=== PATIENT | female | born 1945 | race Asian ===

== ENCOUNTER 2018-09-09 17:36 | Emergency (ER) | payer MEDICARE, BC ==
[~2018-09-09] VITALS: Ht 157.5 cm; Wt 77.1 kg
[~2018-09-09 17:36] MED LIST: AMOCLA875 PO; AZIT500 PO; CEPH500 PO; CITA20 PO; FOLI1 PO; FURO20 PO; GABA300 PO; HYDR1TAB94 PO; HYDSUL200 PO; LORA.5 PO; MELO7.5 PO; MULVITMIND PO; Methotrexa25 MG/1 ML SC; Mobic15 MG PO; Mobic7.5 MG PO; NIFE60ER PO; NORT25 PO; Nifedical Xl30 MG PO; Nortriptyline H25 MG PO; OMEP40CA12 PO; OMEPRAZOLE MAGN20 MG PO; ONDA4ODT MM; POTA10T PO; PRAM.5 PO; PRED10 PO; Triamcinolone A15 G2 TOP
[2018-09-09 18:52] LABS: BASOPHILS ABSOLUTE AUTO 0.07 K/mm3 (0.00-0.23); BASOPHILS PERCENT AUTO 1 % (0-2); EOSINOPHILS ABSOLUTE AUTO 0.29 K/mm3 (0.00-0.68); EOSINOPHILS PERCENT AUTO 3 % (0-6); Hematocrit 44.9 % (33.0-51.0); Hemoglobin 14.4 g/dL (11.5-16.0); IMMATURE GRAN ABSOLUTE AUTO 0.05 K/mm3 (0.00-0.10); IMMATURE GRAN PERCENT AUTO 1 % (0-1); LYMPHOCYTES ABSOLUTE AUTO 1.36 K/mm3 (0.84-5.20); LYMPHOCYTES PERCENT AUTO 13 % (21-46); MONOCYTES ABSOLUTE AUTO 0.69 K/mm3 (0.16-1.47); MONOCYTES PERCENT AUTO 7 % (4-13); Mean Corpuscular HGB 30.7 pg (26.0-34.0); Mean Corpuscular HGB Conc 32.1 g/dL (31.5-36.5); Mean Corpuscular Volume 96 fL (80-100); Mean Platelet Volume 10.8 fL (9.1-12.4); NEUTROPHILS ABSOLUTE AUTO 7.66 K/mm3 (1.96-9.15); NEUTROPHILS PERCENT AUTO 76 % (41-73); Platelet Count 310 K/mm3 (150-400); RDW Coefficient Variation 14.6 % (11.7-14.2); RDW Standard Deviation 50.8 fL (35.1-46.3); Red Blood Cell Count 4.69 M/mm3 (3.80-5.20); White Blood Cell Count 10.12 K/mm3 (4.00-11.30)
[2018-09-09 19:13] LABS: Alanine Aminotransfer (ALT/SGP 24 U/L (12-78); Albumin, Blood 4.1 g/dL (3.4-5.0); Albumin/Globulin Ratio 1.1 (0.8-1.8); Alk Phos 98 U/L (50-136); Anion Gap 7 mmol/L (6-16); Aspartate Aminotrans (AST/SGOT 22 U/L (12-37); Bilirubin, Total 0.5 mg/dL (0.1-1.0); Blood Urea Nitrogen 16 mg/dL (8-24); Bun/Creatinine Ratio 27.9 (12.0-20.0); CO2, Blood 24 mmol/L (21-32); Calcium, Blood 8.6 mg/dL (8.5-10.1); Chloride, Blood 106 mmol/L (98-108); Creatinine, Blood 0.57 mg/dL (0.40-1.00); Globulin, Blood 3.6 g/dL (2.2-4.0); Glomerular Filtration Rate >60 (60-); Glucose, Blood 118 mg/dL (70-99); Sodium, Blood 137 mmol/L (136-145); Total Protein, Blood 7.7 g/dL (6.4-8.2); Troponin I <0.015 ng/mL (0.000-0.040)
== END 2018-09-09 21:20 | disposition home or self-care (01) ==
LOC: ER 17:36
PROVIDERS: Emergency Medicine
DX: R06.00 Dyspnea, unspecified (principal); Z79.899 Other long term (current) drug therapy
CPT/HCPCS: 36415; 71046; 80053; 84484; 85025; 93005; 93010; 94640; 96374; 99285-25; J1940

== ENCOUNTER 2020-12-09 00:20 | Emergency (ER) | payer MEDICARE, BC ==
[~2020-12-09] VITALS: Ht 157.5 cm; Wt 61.2 kg
[~2020-12-09 00:20] MED LIST changes: -CITA20 PO; -OMEPRAZOLE MAGN20 MG PO
[2020-12-09 00:34] LABS: BASOPHILS ABSOLUTE AUTO 0.04 K/mm3 (0.00-0.23); BASOPHILS PERCENT AUTO 1 % (0-2); EOSINOPHILS ABSOLUTE AUTO 0.52 K/mm3 (0.00-0.68); EOSINOPHILS PERCENT AUTO 7 % (0-6); Hemoglobin 11.4 g/dL (11.5-16.0); IMMATURE GRAN ABSOLUTE AUTO 0.02 K/mm3 (0.00-0.10); IMMATURE GRAN PERCENT AUTO 0 % (0-1); LYMPHOCYTES ABSOLUTE AUTO 1.35 K/mm3 (0.84-5.20); LYMPHOCYTES PERCENT AUTO 18 % (21-46); MONOCYTES ABSOLUTE AUTO 0.72 K/mm3 (0.16-1.47); MONOCYTES PERCENT AUTO 9 % (4-13); Mean Corpuscular HGB 29.8 pg (26.0-34.0); Mean Corpuscular HGB Conc 32.6 g/dL (31.5-36.5); Mean Corpuscular Volume 91 fL (80-100); Mean Platelet Volume 10.3 fL (9.1-12.4); NEUTROPHILS PERCENT AUTO 65 % (41-73); Platelet Count 259 K/mm3 (150-400); RDW Coefficient Variation 13.7 % (11.7-14.2); RDW Standard Deviation 46.1 fL (35.1-46.3); Red Blood Cell Count 3.83 M/mm3 (3.80-5.20); White Blood Cell Count 7.65 K/mm3 (4.00-11.30)
[2020-12-09 00:58] LABS: Alanine Aminotransfer (ALT/SGP 19 U/L (12-78); Albumin, Blood 3.2 g/dL (3.4-5.0); Alk Phos 77 U/L (50-136); Anion Gap 9 mmol/L (6-16); Aspartate Aminotrans (AST/SGOT 16 U/L (12-37); Bilirubin, Total 0.4 mg/dL (0.1-1.0); Blood Urea Nitrogen 17 mg/dL (8-24); CO2, Blood 22 mmol/L (21-32); Calcium, Blood 8.2 mg/dL (8.5-10.1); Chloride, Blood 104 mmol/L (98-108); Creatinine, Blood 0.57 mg/dL (0.40-1.00); Ethanol (Alcohol), Blood, Med 80 mg/dL; Globulin, Blood 3.2 g/dL (2.2-4.0); Glomerular Filtration Rate >60 (60-); Glucose, Blood 96 mg/dL (70-99); Potassium, Blood 3.3 mmol/L (3.5-5.5); Sodium, Blood 135 mmol/L (136-145); Total Protein, Blood 6.4 g/dL (6.4-8.2); Troponin I <0.015 ng/mL (0.000-0.040)
[2020-12-09 01:11] LABS: PCO2 Arterial 38.9 mmHg (35-45); PO2 Arterial 55.9 mmHg (80-100); pH Blood Arterial 7.38 (7.35-7.45)
[2020-12-09] MEDS ORDERED: FURO20 PO (02:22)
[2020-12-09 02:57] LABS: Influenza A, PCR NEGATIVE (NEGATIVE); Influenza B, PCR NEGATIVE (NEGATIVE); Resp Syncytial Virus, PCR NEGATIVE (NEGATIVE); SARS-Cov-2 (COVID-19) PCR, MMC NEGATIVE (NEGATIVE)
== END 2020-12-09 03:11 | disposition short-term general hospital (02) ==
LOC: ER 00:20
PROVIDERS: Emergency Medicine
DX: I50.9 Heart failure, unspecified (principal); Z20.822 Contact with and (suspected) exposure to COVID-19; Z88.2 Allergy status to sulfonamides; Z88.8 Allergy status to other drugs, medicaments and biological substances; Z88.5 Allergy status to narcotic agent; Z86.79 Personal history of other diseases of the circulatory system; Z79.899 Other long term (current) drug therapy; M79.605 Pain in left leg
CPT/HCPCS: 0241U; 36600; 71045; 80053; 82803; 83605; 83880; 84484; 85025; 93005; 93010; 93971; 96374; 96375; 99285-25; G0480; J1940; J3010

== ENCOUNTER 2020-12-23 19:29 | Emergency (ER) | payer MEDICARE, BC ==
[~2020-12-23] VITALS: Ht 157.5 cm; Wt 61.2 kg
[2020-12-23] MEDS ORDERED: CITA20 PO (21:05)
[2020-12-23] MEDS ORDERED: OMEPRAZOLE MAGN20 MG PO (21:05)
[2020-12-23] MEDS ORDERED: POTA10T PO (21:05)
[2020-12-23] MEDS ORDERED: TORSE20 PO (21:06)
[2020-12-23] MEDS ORDERED: PRAM.5 PO (21:07)
[2020-12-23] MEDS ORDERED: OPSUMIT10 MG PO (21:07)
[2020-12-23] MEDS ORDERED: REVATIO20 MG PO (21:08)
[2020-12-23] MEDS ORDERED: LORA.5 PO (21:08)
[2020-12-23] MEDS ORDERED: FAMO20 PO (21:09)
[2020-12-23] MEDS ORDERED: VITAMIN D325 MC3 PO (21:10)
[2020-12-23] MEDS ORDERED: LORA10ER PO (21:10)
[2020-12-23] MEDS ORDERED: Remodulin1 MG/1 ML (21:11)
[2020-12-23] MEDS ORDERED: BANOPHEN25 MG PO (21:11)
[2020-12-23 21:20] LABS: BASOPHILS ABSOLUTE AUTO 0.03 K/mm3 (0.00-0.23); BASOPHILS PERCENT AUTO 0 % (0-2); EOSINOPHILS ABSOLUTE AUTO 0.14 K/mm3 (0.00-0.68); EOSINOPHILS PERCENT AUTO 2 % (0-6); Hematocrit 36.7 % (33.0-51.0); Hemoglobin 12.1 g/dL (11.5-16.0); IMMATURE GRAN ABSOLUTE AUTO 0.05 K/mm3 (0.00-0.10); IMMATURE GRAN PERCENT AUTO 1 % (0-1); LYMPHOCYTES ABSOLUTE AUTO 1.01 K/mm3 (0.84-5.20); LYMPHOCYTES PERCENT AUTO 11 % (21-46); MONOCYTES ABSOLUTE AUTO 0.54 K/mm3 (0.16-1.47); MONOCYTES PERCENT AUTO 6 % (4-13); Mean Corpuscular HGB 30.2 pg (26.0-34.0); Mean Corpuscular Volume 92 fL (80-100); Mean Platelet Volume 10.2 fL (9.1-12.4); NEUTROPHILS PERCENT AUTO 80 % (41-73); Platelet Count 275 K/mm3 (150-400); RDW Coefficient Variation 14.2 % (11.7-14.2); RDW Standard Deviation 48.2 fL (35.1-46.3); Red Blood Cell Count 4.01 M/mm3 (3.80-5.20); White Blood Cell Count 8.87 K/mm3 (4.00-11.30)
[2020-12-23] MEDS ORDERED: TORS10 PO (21:25)
[2020-12-23 21:32] LABS: Anion Gap 8 mmol/L (6-16); Blood Urea Nitrogen 21 mg/dL (8-24); Bun/Creatinine Ratio 29.8 (12.0-20.0); CO2, Blood 22 mmol/L (21-32); Calcium, Blood 8.4 mg/dL (8.5-10.1); Chloride, Blood 107 mmol/L (98-108); Creatinine, Blood 0.71 mg/dL (0.40-1.00); Glomerular Filtration Rate >60 (60-); Glucose, Blood 111 mg/dL (70-99); Potassium, Blood 3.6 mmol/L (3.5-5.5); Sodium, Blood 137 mmol/L (136-145)
[2020-12-23 21:34] LABS: International Normalized Ratio 1.02; Prothrombin Time Results 10.9 Sec (9.7-11.5)
== END 2020-12-24 03:08 | disposition short-term general hospital (02) ==
LOC: ER 19:29
PROVIDERS: Emergency Medicine
DX: S72.041A Displaced fracture of base of neck of right femur, initial encounter for closed fracture (principal); K21.9 Gastro-esophageal reflux disease without esophagitis; Z88.2 Allergy status to sulfonamides; Z88.8 Allergy status to other drugs, medicaments and biological substances; Z88.5 Allergy status to narcotic agent; Z79.899 Other long term (current) drug therapy; Z87.891 Personal history of nicotine dependence; W18.30XA Fall on same level, unspecified, initial encounter
CPT/HCPCS: 51702; 71045; 73502; 80048; 85025; 85610; 85730; 86850; 86900; 86901; 93005; 93010; 96374-59; 96375-59; 96376; 96376-59; 99285-25; J1170; J2405

== ENCOUNTER 2021-08-10 03:33 | Inpatient (IN) | payer MEDICARE, BC ==
[~2021-08-10] VITALS: Ht 157.5 cm; Wt 64.5 kg
[~2021-08-10 03:33] MED LIST changes: +BANOPHEN25 MG PO; +CITA20 PO; +FAMO20 PO; +LORA10ER PO; +OMEPRAZOLE MAGN20 MG PO; +OPSUMIT10 MG PO; +REVATIO20 MG PO; +Remodulin1 MG/1 ML; +TORS10 PO; +TORSE20 PO; +VITAMIN D325 MC3 PO
[2021-08-10 03:55] LABS: BASOPHILS ABSOLUTE AUTO 0.05 K/mm3 (0.00-0.23); BASOPHILS PERCENT AUTO 1 % (0-2); EOSINOPHILS ABSOLUTE AUTO 0.36 K/mm3 (0.00-0.68); EOSINOPHILS PERCENT AUTO 3 % (0-6); Hematocrit 32.3 % (33.0-51.0); Hemoglobin 9.5 g/dL (11.5-16.0); IMMATURE GRAN ABSOLUTE AUTO 0.04 K/mm3 (0.00-0.10); IMMATURE GRAN PERCENT AUTO 0 % (0-1); LYMPHOCYTES ABSOLUTE AUTO 1.42 K/mm3 (0.84-5.20); LYMPHOCYTES PERCENT AUTO 14 % (21-46); MONOCYTES ABSOLUTE AUTO 0.67 K/mm3 (0.16-1.47); MONOCYTES PERCENT AUTO 6 % (4-13); Mean Corpuscular HGB 23.2 pg (26.0-34.0); Mean Corpuscular HGB Conc 29.4 g/dL (31.5-36.5); Mean Corpuscular Volume 79 fL (80-100); Mean Platelet Volume 9.6 fL (9.1-12.4); NEUTROPHILS ABSOLUTE AUTO 7.96 K/mm3 (1.96-9.15); NEUTROPHILS PERCENT AUTO 76 % (41-73); Platelet Count 319 K/mm3 (150-400); RDW Coefficient Variation 16.8 % (11.7-14.2); RDW Standard Deviation 48.2 fL (35.1-46.3)
[2021-08-10] MEDS ORDERED: OPSUMIT10 MG (03:57)
[2021-08-10] MEDS ORDERED: Norco 5-325 Ta1 EACH (03:58)
[2021-08-10 04:18] LABS: Anion Gap 8 mmol/L (6-16); Blood Urea Nitrogen 26 mg/dL (8-24); CO2, Blood 24 mmol/L (21-32); Calcium, Blood 8.7 mg/dL (8.5-10.1); Chloride, Blood 108 mmol/L (98-108); Creatinine, Blood 0.74 mg/dL (0.40-1.00); Glomerular Filtration Rate >60 (60-); Glucose, Blood 123 mg/dL (70-99); Potassium, Blood 3.2 mmol/L (3.5-5.5); Sodium, Blood 140 mmol/L (136-145); Troponin I <0.015 ng/mL (0.000-0.040)
[2021-08-10 04:25] LABS: PCO2 Arterial 36.8 mmHg (35-45); PO2 Arterial 53.9 mmHg (80-100); pH Blood Arterial 7.46 (7.35-7.45)
[2021-08-10] MEDS ORDERED: ORENITRAM ER0.125 MG PO (06:06)
[2021-08-10 06:20] LABS: Percent Saturation 3.2 % (15.0-50.0)
[2021-08-10 08:32] LABS: Influenza A, PCR NEGATIVE (NEGATIVE); Influenza B, PCR NEGATIVE (NEGATIVE); Resp Syncytial Virus, PCR NEGATIVE (NEGATIVE); SARS-Cov-2 (COVID-19) PCR, MMC NEGATIVE (NEGATIVE)
--- NOTE | 2021-08-10 19:25 | NUR ---
ASSUMED CARE OF PATIENT AT 1900. A/OX4 WITH PERIODS OF SLIGHT CONFUSION. MAINTAINS 90-95% ON 10L NC (BASELINE IS 6L), DESATS WITH ACTIVITY INTO LOW 80'S. CLEAR UPPER, DIM AT BASES. NSR ON MONITOR 90'S. AGUAYO DRAINING TO GRAVITY YELLOW URINE. WILL UPDATE WITH ANY CHANGES THAT OCCUR THIS SHIFT.
[2021-08-11 04:10] LABS: Anion Gap 10 mmol/L (6-16); Blood Urea Nitrogen 18 mg/dL (8-24); Bun/Creatinine Ratio 31.9 (12.0-20.0); CO2, Blood 24 mmol/L (21-32); Calcium, Blood 8.8 mg/dL (8.5-10.1); Chloride, Blood 109 mmol/L (98-108); Creatinine, Blood 0.57 mg/dL (0.40-1.00); Glomerular Filtration Rate >60 (60-); Glucose, Blood 146 mg/dL (70-99); Potassium, Blood 3.5 mmol/L (3.5-5.5); Sodium, Blood 143 mmol/L (136-145)
--- NOTE | 2021-08-11 18:07 | NUR ---
SHIFT SUMMARY ASSUMED CARE OF PATIENT AT APPROX 0700. PT A&Ox3; FORGETFUL. CALM AND COOPERTIVE WITH CARE. PT UP IN CHAIR FOR MEALS, OTHERWISE RESTING IN BED DURING SHIFT. PT DENIES PAIN, CHEST PAIN, NAUSEA AND DIZZINESS. PT REPORTS SOB WITH EXERTION, SPO2 >90% WHILE AT REST, PT STARTED ON 10L O2 VIA NC, TITRATED TO 6L O2 VIA NC WHICH IS HOME DOSE. PT RECEIVING IV LASIX AND STEROIDS. OTHER VSS. NO OTHER ACUTE CHANGES NOTED. WILL CONTINUE TO MONITOR UNTIL REPORT GIVEN TO ONCOMING RN.
--- NOTE | 2021-08-11 20:30 | NUR ---
ASSUMED CARE OF PATIENT AT 1900. A/OX4, REPORTS HEADACHE OF 5/10. MAINTAINING BETWEEN 90-95% ON 6L NC (HER HOME BASELINE), HOWEVER SHE DESATS WITH ACTIVITY INTO 70'S-80'S WITH A LONG RECOVERY. LS CLEAR T/O. SINUS ON MONITOR IN 80'S. NO CP/PRESSURE. HYPERACTIVE BOWEL TONES WITH ACCOMPANIED DIARRHEA, PATIENT REPORTS THIS HAS BEEN A CHRONIC PROBLEM. AGUAYO DRAINING TO GRAVITY YELLOW/CLEAR URINE. BP CONTINUES TO BE SOFT WITH SBP IN 90-100'S AND MAP AROUND 65. WILL UPDATE IF ANY CHANGES OCCUR.
[2021-08-12 06:36] LABS: Albumin, Blood 2.9 g/dL (3.4-5.0); Anion Gap 9 mmol/L (6-16); Blood Urea Nitrogen 25 mg/dL (8-24); Bun/Creatinine Ratio 39.1 (12.0-20.0); CO2, Blood 25 mmol/L (21-32); Calcium, Blood 8.7 mg/dL (8.5-10.1); Chloride, Blood 108 mmol/L (98-108); Creatinine, Blood 0.64 mg/dL (0.40-1.00); Glomerular Filtration Rate >60 (60-); Glucose, Blood 83 mg/dL (70-99); Magnesium, Blood 2.3 mg/dL (1.6-2.4); Phosphorus, Blood 4.1 mg/dL (2.5-4.9); Potassium, Blood 3.8 mmol/L (3.5-5.5); Sodium, Blood 142 mmol/L (136-145)
[2021-08-12] MEDS ORDERED: Acerola C500 MG PO (11:40)
[2021-08-12] MEDS ORDERED: PRED20 PO (11:40)
[2021-08-12] MEDS ORDERED: FERSU300 PO (11:41)
--- NOTE | 2021-08-12 14:00 | NUR ---
DISCHARGE SUMMARY PT A&O; CALM AND COOPERATIVE WITH CARE. PT UP IN CHAIR FOR MAJORITY OF SHIFT. PT DENIES PAIN, CHEST PAIN, SOB, NAUSEA AND DIZZINESS. SPO2 >90% ON 6L O2 VIA NC, DENIES SOB WITH MOVEMENT. BLADDER TRAINING COMPLETED, PT VOID AFTER AGUAYO REMOVAL. VSS. NO OTHER ACUTE CHANGES NOTED. PT EDUCATED ON DISCHARGE INSTRUCTIONS, FOLLOW UP APPOINTMENT, MEDICATED AND FLUID RESTRICTIONS. PRESCRIPTIONS TO [facility] PER PT REQUEST. PT LEFT ROOM VIA WHEELCHAIR AT APPROX 1352.
== END 2021-08-12 13:52 | disposition home or self-care (01) | DRG 189 ==
LOC: ER 03:33 → ERHOLD 05:32 → PCU 05:32
PROVIDERS: Internal Medicine; Student in an Organized Health Care Education/Training Program; ADMIT Internal Medicine
DX: J96.21 Acute and chronic respiratory failure with hypoxia (principal); I27.0 Primary pulmonary hypertension; Z20.822 Contact with and (suspected) exposure to COVID-19; R19.00 Intra-abdominal and pelvic swelling, mass and lump, unspecified site; E87.6 Hypokalemia; D64.9 Anemia, unspecified; Z66 Do not resuscitate; M34.1 CR(E)ST syndrome; K21.9 Gastro-esophageal reflux disease without esophagitis; Z88.2 Allergy status to sulfonamides; Z23 Encounter for immunization; Z88.5 Allergy status to narcotic agent; Z88.8 Allergy status to other drugs, medicaments and biological substances; Z79.899 Other long term (current) drug therapy; Z90.710 Acquired absence of both cervix and uterus; Z98.890 Other specified postprocedural states; Z87.891 Personal history of nicotine dependence
CPT/HCPCS: 0241U; 36415; 36600; 51702; 71045; 71046; 74018; 80048; 80069; 82607; 82728; 82746; 82803; 83540; 83550; 83605; 83735; 83880; 84145; 84484; 85025; 90686; 93005; 93010; 94760; 96374; 96375; 99285-25; A9270; G0008; J1650; J1940; J2916; J2930; J7030; J7512

== ENCOUNTER 2022-06-08 21:36 | Inpatient (IN) | payer MEDICARE, BC ==
[~2022-06-08] VITALS: Ht 160 cm; Wt 58.3 kg
[~2022-06-08 21:36] MED LIST changes: +AZIT250 PO; +Acerola C500 MG PO; +Amoxicillin500 MG PO; +FERSU300 PO; +GUAI600T33 PO; +IPRATROPIUM BRO30 ML; +LOPE2C PO; +MULVITA PO; +Norco 5-325 Ta1 EACH; +OPSUMIT10 MG; +ORENITRAM ER0.125 MG PO; +PRED20 PO; +Pataday2.5 ML; +SPIR25 PO
[2022-06-09] MEDS ORDERED: BENADRYL25 MG PO (01:35)
[2022-06-09] MEDS ORDERED: REMODULIN (01:37)
--- NOTE | 2022-06-09 02:35 | NUR ---
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 PT WAS ADMITTED IN MARCH OF THIS YEAR WITH SAME DX. SHE IS ALERT AND ORIENTED ON ARRIVAL, STANDS TO TRANSFER TO BED WITH STEADY GAIT AND DENIES DIZZINESS/VERTIGO WITH TRANSFER. SHE STATES THAT HER BLOOD PRESSURE NORMALLY RUNS LOW. SHE IS NOTED SPEAKING IN FULL SENTENCES WITHOUT VISIBLE INCREASED WORK OF BREATHING AT REST AND REPORTS THAT HER RESPIRATORY STATUS FEELS NEAR BASELINE AFTER REMODULIN INFUSION WAS STARTED IN ER. REMODULIN IS NOTED INFUSING AT 17 ML/HR TO LEFT AC IV WITH FILTER IN PLACE. LUNGS ARE CLEAR WITH DIM BASES BILAT AND SATS ARE MAINTAINING MID TO UPPER 90S WITH OXYGEN VIA NASAL CANNULA AT 4 L/MIN, PT'S HOME FLOW RATE IS 5 L/MIN. PLAN OF CARE FOR THIS SHIFT IS REVIEWED WITH PT REGARDING FREQUENCY OF VITAL SIGN MONITORING, FALL PRECAUTIONS, ROOM AND CALL SYSTEM ORIENTATION, REVIEWED PT INITIATED RAPID RESPONSE. PT VERBALIZED UNDERSTANDING.
--- NOTE | 2022-06-09 05:26 | NUR ---
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 PT PRESSURES TOLERATING MEDICATION WELL, FREQUENCY OF ASSESSMENTS HAVE BEEN DECREASED TO EVERY 30 MINUTES SECONDARY TO HOME MEDICATION. PT STATES THAT BREATHING FEELS NEAR BASELINE. TOLERATES UP TO BATHROOM AND BSC WITH STANDBY ASSIST FOR LINE MANAGEMENT, SATS MAINTAINING WITH OXYGEN VIA NASAL CANNULA AT 4 LITERS PER MINUTE, HOME FLOW RATE IS 5 L/MIN. PLAN FOR HOME IV ADMINISTRATION UNTIL HOME PUMP IS REPAIRED OR REPLACED. WILL CONT TO MONITOR.
--- NOTE | 2022-06-09 10:30 | NUR ---
Assumed care: I recieved report from Leanna BUSH. Patient is OOB resting in the recliner. She is alert and oriented. VSS. Patient denies needs at this time. Call light in reach, will continue to monitor.
--- NOTE | 2022-06-09 12:30 | NUR ---
Update: Patient is sitting up in the chair watching TV. VSS. Assessment unchanged. Patient denies other needs at this time. Call light in reach, will continue to monitor.
--- NOTE | 2022-06-09 16:30 | NUR ---
Update: Patient is still sitting up in the chair her gtt was changed out. She denies other needs at this time. Will continue to monitor.
--- NOTE | 2022-06-09 18:31 | NUR ---
Summary: Patient has been alert and oriented t/o the shift. She has been OOB to the recliner t/o the shift. HRR. SR in the 70s, blood pressure has been soft but with MAPs above 65. LS DIM T/O, pt has been on home dose of O2 at 4L via NC. BT+, she has had some diarrhea this shift. She has her Remodulin gtt infusing with supplies being delivered from [facility] pharmacy per the patients daughter tomorrow. She has been ambulating to the bathroom SBA. No other acute changes this shift. Will report to oncoming RN.
--- NOTE | 2022-06-10 04:59 | NUR ---
SHIFT SUMMARY PT REMAINS ALERT AND ORIENTED. VS STABLE. HR NSR. BP STABLE. REMODULIN GTT INFUSING PER ORDERS. PT HAS RESTED MOST OF SHIFT. NO ACUTE CHANGES. WILL CONTINUE TO MONITOR AND REPORT TO ONCOMING RN
--- NOTE | 2022-06-10 09:27 | NUR ---
Am note Pt alert, oriented X4; calm and cooperative with care. Pt sba in room, up in chair for majority of morning. Pt denies pain, chest pain/pressue, nausea, sob, dizziness and numb/tingling. Ls clear, dim in bases, spo2 >90% on 4l o2 via nc. Remodulin gtt per orders. Tele sinus 80's bp stable. Abd soft, nontender, normo active bt. Other vss. No other acute changes noted. Will continue to monitor until report given to oncoming rn. Per pt, new pump should be delivered today, pt watching cameras at house and will have daughter deliver it to the hospital.
--- NOTE | 2022-06-10 14:31 | NUR ---
Daughter at bedside with new pump and is preparing it for placement. Notified .
--- NOTE | 2022-06-10 15:41 | NUR ---
Discharge Summary Pt daughter to bedside this afternoon, filled and placed new pump device, stopped iv infusion. Pt requesting medicaitons this am for chronic diarrhea, notified , new orders entered. No other acute changes noted. Vss. No other acute changes noted. Daughter and patient educated of discharge instructions, follow up appointments and medications changes. No new medication. Pt left via wheel chair at 1517. Home medication returned to patient.
== END 2022-06-10 15:17 | disposition home or self-care (01) | DRG 315 ==
LOC: ER 21:36 → PCU 21:37
PROVIDERS: ADMIT Internal Medicine
DX: T82.514A Breakdown (mechanical) of infusion catheter, initial encounter (principal); J96.11 Chronic respiratory failure with hypoxia; M34.1 CR(E)ST syndrome; K21.9 Gastro-esophageal reflux disease without esophagitis; I27.20 Pulmonary hypertension, unspecified; Z88.8 Allergy status to other drugs, medicaments and biological substances; Z90.710 Acquired absence of both cervix and uterus; Z98.890 Other specified postprocedural states; Z96.659 Presence of unspecified artificial knee joint; Z79.899 Other long term (current) drug therapy
CPT/HCPCS: 36415; 93005; 93010; 99284-25; A9270; G0378; J7050

== ENCOUNTER → 2024-01-12 | Outpatient (CLI) | payer MEDICARE, BC ==
[~2024-01-12] MED LIST changes: +BENADRYL25 MG PO; +REMODULIN
== END | disposition home or self-care (01) ==
LOC: LAB SHORT 15:38 → LAB 15:38
DX: L02.211 Cutaneous abscess of abdominal wall (principal)
CPT/HCPCS: 87070; 87077; 87147; 87186; 87205

== ENCOUNTER → 2024-07-09 | Outpatient (CLI) | payer MEDICARE, BC | LOC: LAB SHORT 12:00 → LAB 12:00 | DX: N30.01 Acute cystitis with hematuria (principal) | CPT/HCPCS: 87077; 87086; 87186 ==

== ENCOUNTER → 2024-08-24 | Outpatient (CLI) | payer MEDICARE, BC ==
[~2024-08-24] MED LIST changes: +ALEN70 PO; +Acetaminophen325 M1 PO; +CALCIUM 600 +1 EA11 PO; +Flonase 0.05% N16 GM; +IBUP200 PO; +MAGNESIUM250 M1 PO; +MIRAPEX0.75 M1 PO; +Mirapex0.5 MG PO; +ONDA4 PO; +PANT20 PO; +SOAANZ20 M2 PO; +TREPROSTINIL; +TREPROSTINIL SC; +ZOLOFT25 MG PO
== END | disposition home or self-care (01) ==
LOC: LAB 15:45 → LAB SHORT 15:45
DX: N39.0 Urinary tract infection, site not specified (principal)
CPT/HCPCS: 87077; 87086; 87186

== ENCOUNTER 2024-09-01 06:47 | Emergency (ER) | payer MEDICARE, BC ==
[~2024-09-01] VITALS: Ht 152.4 cm; Wt 56.7 kg
[2024-09-01] MEDS ORDERED: NS 1,000 ML IV SCH (07:00)
[2024-09-01 07:07] LABS: BASOPHILS ABSOLUTE AUTO 0.03 K/mm3 (0.00-0.23); BASOPHILS PERCENT AUTO 0 % (0-2); EOSINOPHILS PERCENT AUTO 4 % (0-6); Hematocrit 33.9 % (33.0-51.0); Hemoglobin 10.4 g/dL (11.5-16.0); IMMATURE GRAN ABSOLUTE AUTO 0.05 K/mm3 (0.00-0.10); IMMATURE GRAN PERCENT AUTO 1 % (0-1); LYMPHOCYTES ABSOLUTE AUTO 0.86 K/mm3 (0.84-5.20); LYMPHOCYTES PERCENT AUTO 10 % (21-46); MONOCYTES ABSOLUTE AUTO 0.48 K/mm3 (0.16-1.47); MONOCYTES PERCENT AUTO 6 % (4-13); Mean Corpuscular HGB 28.2 pg (26.0-34.0); Mean Corpuscular HGB Conc 30.7 g/dL (31.5-36.5); Mean Corpuscular Volume 92 fL (80-100); Mean Platelet Volume 10.4 fL (9.1-12.4); NEUTROPHILS ABSOLUTE AUTO 6.91 K/mm3 (1.96-9.15); NEUTROPHILS PERCENT AUTO 80 % (41-73); Platelet Count 213 K/mm3 (150-400); RDW Coefficient Variation 14.6 % (11.7-14.2); RDW Standard Deviation 49.5 fL (35.1-46.3); Red Blood Cell Count 3.69 M/mm3 (3.80-5.20); White Blood Cell Count 8.63 K/mm3 (4.00-11.30)
[2024-09-01] MEDS ORDERED: Furosemide 10 MG / ML 2ML Vial IV ONE (07:20)
[2024-09-01 07:39] LABS: Alanine Aminotransfer (ALT/SGP 16 U/L (12-78); Albumin, Blood 3.4 g/dL (3.4-5.0); Albumin/Globulin Ratio 0.9 (0.8-1.8); Alk Phos 99 U/L (50-136); Anion Gap 14 mmol/L (3-11); Aspartate Aminotrans (AST/SGOT 18 U/L (12-37); Bilirubin, Total 0.4 mg/dL (0.1-1.0); Blood Urea Nitrogen 32 mg/dL (8-24); Bun/Creatinine Ratio 40.2 (12.0-20.0); CO2, Blood 16 mmol/L (21-32); Calcium, Blood 8.9 mg/dL (8.5-10.1); Chloride, Blood 114 mmol/L (98-108); Globulin, Blood 3.9 g/dL (2.2-4.0); Glomerular Filtration Rate 74 (60-); Glucose, Blood 107 mg/dL (70-99); Potassium, Blood 4.3 mmol/L (3.5-5.5); Sodium, Blood 140 mmol/L (136-145); Total Protein, Blood 7.3 g/dL (6.4-8.2)
[2024-09-01 08:09] LABS: PCO2 Venous 27 mmHg (38-42); pH Blood Venous 7.38 (7.34-7.37)
[2024-09-01 08:10] LABS: Base Excess Venous -8.7 mmol/L; Bicarbonate Venous 18.4 mmol/L (24.0-30.0)
[2024-09-01 09:20] VITALS: BP 124/64
== END 2024-09-01 09:35 | disposition short-term general hospital (02) ==
LOC: ER 06:47
PROVIDERS: Emergency Medicine
DX: J96.21 Acute and chronic respiratory failure with hypoxia (principal); I27.23 Pulmonary hypertension due to lung diseases and hypoxia; K21.9 Gastro-esophageal reflux disease without esophagitis; Z87.39 Personal history of other diseases of the musculoskeletal system and connective tissue; Z87.891 Personal history of nicotine dependence; Z79.51 Long term (current) use of inhaled steroids; Z79.899 Other long term (current) drug therapy; Z88.8 Allergy status to other drugs, medicaments and biological substances
CPT/HCPCS: 71045; 71260; 80053; 82803; 83880; 84484; 85025; 93005; 93010; 96374-59; 99285-25; J1940; J7030; Q9967

== ENCOUNTER 2024-09-18 11:59 | Emergency (ER) | payer MEDICARE, BC ==
[~2024-09-18] VITALS: Ht 154.9 cm; Wt 58.1 kg
[2024-09-18 14:05] LABS: Adenovirus Not Detected (NOT DETECT); Coronavirus 229E Not Detected (NOT DETECT); Coronavirus HKU1 Not Detected (NOT DETECT); Coronavirus NL63 Not Detected (NOT DETECT); Coronavirus OC43 Not Detected (NOT DETECT); Human Metapneumovirus Not Detected (NOT DETECT); Human Rhinovirus/Enterovirus Not Detected (NOT DETECT); Influenza A/2009-H1 Not Detected (NOT DETECT); Influenza A/H1 Not Detected (NOT DETECT); Influenza A/H3 Not Detected (NOT DETECT); Influenza B Not Detected (NOT DETECT); Parainfluenza Virus 1 Not Detected (NOT DETECT); Parainfluenza Virus 2 Not Detected (NOT DETECT); Parainfluenza Virus 3 Not Detected (NOT DETECT); Parainfluenza Virus 4 Not Detected (NOT DETECT); Respiratory Syncytial Virus Not Detected (NOT DETECT); SARS-Cov-2 (COVID-19), BioFire Not Detected (NOT DETECT)
[2024-09-18 14:06] LABS: BASOPHILS ABSOLUTE AUTO 0.04 K/mm3 (0.00-0.23); BASOPHILS PERCENT AUTO 1 % (0-2); EOSINOPHILS PERCENT AUTO 5 % (0-6); Hematocrit 30.2 % (33.0-51.0); Hemoglobin 9.7 g/dL (11.5-16.0); IMMATURE GRAN ABSOLUTE AUTO 0.04 K/mm3 (0.00-0.10); IMMATURE GRAN PERCENT AUTO 1 % (0-1); LYMPHOCYTES ABSOLUTE AUTO 0.81 K/mm3 (0.84-5.20); LYMPHOCYTES PERCENT AUTO 10 % (21-46); MONOCYTES ABSOLUTE AUTO 0.49 K/mm3 (0.16-1.47); MONOCYTES PERCENT AUTO 6 % (4-13); Mean Corpuscular HGB 28.8 pg (26.0-34.0); Mean Corpuscular HGB Conc 32.1 g/dL (31.5-36.5); Mean Corpuscular Volume 90 fL (80-100); Mean Platelet Volume 10.4 fL (9.1-12.4); NEUTROPHILS ABSOLUTE AUTO 6.57 K/mm3 (1.96-9.15); NEUTROPHILS PERCENT AUTO 79 % (41-73); Platelet Count 272 K/mm3 (150-400); RDW Coefficient Variation 14.6 % (11.7-14.2); RDW Standard Deviation 47.4 fL (35.1-46.3); Red Blood Cell Count 3.37 M/mm3 (3.80-5.20); White Blood Cell Count 8.35 K/mm3 (4.00-11.30)
[2024-09-18 14:06] LABS: Bordetella pertussis Not Detected (NOT DETECT); Chlamydophila pneumoniae Not Detected (NOT DETECT); Mycoplasma pneumoniae Not Detected (NOT DETECT)
[2024-09-18] MEDS ORDERED: GUAI200 PO (14:13)
[2024-09-18] MEDS ORDERED: Calcium Acetat667 MG PO (14:13)
[2024-09-18] MEDS ORDERED: Remodulin1 MG/1 ML IJ (14:16)
[2024-09-18] MEDS ORDERED: PRAM.125 PO (14:16)
[2024-09-18 14:21] LABS: Albumin, Blood 3.3 g/dL (3.4-5.0); Albumin/Globulin Ratio 0.9 (0.8-1.8); Bilirubin, Total 0.3 mg/dL (0.1-1.0); Bun/Creatinine Ratio 32.5 (12.0-20.0); Calcium, Blood 8.9 mg/dL (8.5-10.1); Creatinine, Blood 0.77 mg/dL (0.40-1.00); Globulin, Blood 3.5 g/dL (2.2-4.0); Potassium, Blood 3.7 mmol/L (3.5-5.5); Total Protein, Blood 6.8 g/dL (6.4-8.2)
[2024-09-18] MEDS ORDERED: Furosemide 10 MG/ML 4ML Vial IV ONE (16:40)
[2024-09-18] MEDS ORDERED: CefTRIAXone Sodium 1,000 MG in NS 100 ML IV ONE (16:40)
[2024-09-18 17:30] VITALS: BP 105/75
== END 2024-09-18 18:40 | disposition home or self-care (01) ==
LOC: ER 11:59
PROVIDERS: Student in an Organized Health Care Education/Training Program
DX: J96.21 Acute and chronic respiratory failure with hypoxia (principal); J44.9 Chronic obstructive pulmonary disease, unspecified; M34.1 CR(E)ST syndrome; M34.9 Systemic sclerosis, unspecified; I27.0 Primary pulmonary hypertension; K21.9 Gastro-esophageal reflux disease without esophagitis; I65.8 Occlusion and stenosis of other precerebral arteries; I50.9 Heart failure, unspecified; Z87.891 Personal history of nicotine dependence; Z99.81 Dependence on supplemental oxygen; Z88.8 Allergy status to other drugs, medicaments and biological substances; Z79.899 Other long term (current) drug therapy; Z79.83 Long term (current) use of bisphosphonates
CPT/HCPCS: 0202U; 71045; 71260; 80053; 84484; 85025; 96374-59; 99285-25; J1940; Q9967

== ENCOUNTER 2025-01-02 21:44 | Inpatient (IN) | payer MEDICARE ==
[2025-01-02] VITALS (8 sets, daily range): BP systolic 99–127; BP diastolic 55–66
[~2025-01-02] VITALS: Ht 152.4 cm; Wt 54.9 kg
[~2025-01-02 21:44] MED LIST changes: +Calcium Acetat667 MG PO; +GUAI200 PO; +PRAM.125 PO; +Remodulin1 MG/1 ML IJ
[2025-01-02] MEDS ORDERED: Albuterol 2.5 MG/3 ML VIAL INH ONE (22:00)
[2025-01-02 22:17] LABS: BASOPHILS ABSOLUTE AUTO 0.04 K/mm3 (0.00-0.23); BASOPHILS PERCENT AUTO 0 % (0-2); EOSINOPHILS ABSOLUTE AUTO 0.19 K/mm3 (0.00-0.68); EOSINOPHILS PERCENT AUTO 2 % (0-6); Hematocrit 29.7 % (33.0-51.0); Hemoglobin 9.3 g/dL (11.5-16.0); IMMATURE GRAN ABSOLUTE AUTO 0.05 K/mm3 (0.00-0.10); IMMATURE GRAN PERCENT AUTO 1 % (0-1); LYMPHOCYTES ABSOLUTE AUTO 0.73 K/mm3 (0.84-5.20); LYMPHOCYTES PERCENT AUTO 8 % (21-46); MONOCYTES ABSOLUTE AUTO 0.47 K/mm3 (0.16-1.47); MONOCYTES PERCENT AUTO 5 % (4-13); Mean Corpuscular HGB 27.3 pg (26.0-34.0); Mean Corpuscular HGB Conc 31.3 g/dL (31.5-36.5); Mean Corpuscular Volume 87 fL (80-100); Mean Platelet Volume 9.9 fL (9.1-12.4); NEUTROPHILS ABSOLUTE AUTO 7.61 K/mm3 (1.96-9.15); NEUTROPHILS PERCENT AUTO 84 % (41-73); Platelet Count 246 K/mm3 (150-400); RDW Coefficient Variation 15.5 % (11.7-14.2); RDW Standard Deviation 49.9 fL (35.1-46.3); Red Blood Cell Count 3.41 M/mm3 (3.80-5.20); White Blood Cell Count 9.09 K/mm3 (4.00-11.30)
[2025-01-02 22:36] LABS: Albumin, Blood 3.2 g/dL (3.4-5.0); Albumin/Globulin Ratio 0.9 (0.8-1.8); Bilirubin, Total 0.3 mg/dL (0.1-1.0); Bun/Creatinine Ratio 35.2 (12.0-20.0); Calcium, Blood 8.7 mg/dL (8.5-10.1); Creatinine, Blood 1.05 mg/dL (0.40-1.00); Globulin, Blood 3.6 g/dL (2.2-4.0); Potassium, Blood 3.9 mmol/L (3.5-5.5); Total Protein, Blood 6.8 g/dL (6.4-8.2)
[2025-01-02] MEDS ORDERED: MethylPREDNISolone Sod Succ 125 MG Vial IV ONE (22:50)
[2025-01-03] VITALS: BP 124/62
[2025-01-03] MEDS ORDERED: Albuterol 2.5 MG/3 ML VIAL INH ONE (00:10)
[2025-01-03] MEDS ORDERED: Ondansetron HCl 2 MG / ML 2ML Vial IV PRN (01:00)
[2025-01-03] MEDS ORDERED: Ipratropium/Albuterol SulF 2.5-0.5MG/3 ML Amp INH PRN (01:00)
[2025-01-03] MEDS ORDERED: Furosemide 10 MG/ML 4ML Vial IV SCH (01:00)
[2025-01-03 04:06] LABS: BASOPHILS ABSOLUTE AUTO 0.01 K/mm3 (0.00-0.23); BASOPHILS PERCENT AUTO 0 % (0-2); EOSINOPHILS ABSOLUTE AUTO 0.01 K/mm3 (0.00-0.68); EOSINOPHILS PERCENT AUTO 0 % (0-6); Hematocrit 29.8 % (33.0-51.0); Hemoglobin 9.5 g/dL (11.5-16.0); IMMATURE GRAN ABSOLUTE AUTO 0.04 K/mm3 (0.00-0.10); IMMATURE GRAN PERCENT AUTO 0 % (0-1); LYMPHOCYTES ABSOLUTE AUTO 0.26 K/mm3 (0.84-5.20); LYMPHOCYTES PERCENT AUTO 3 % (21-46); MONOCYTES ABSOLUTE AUTO 0.06 K/mm3 (0.16-1.47); MONOCYTES PERCENT AUTO 1 % (4-13); Mean Corpuscular HGB 27.5 pg (26.0-34.0); Mean Corpuscular HGB Conc 31.9 g/dL (31.5-36.5); Mean Corpuscular Volume 86 fL (80-100); Mean Platelet Volume 9.7 fL (9.1-12.4); NEUTROPHILS PERCENT AUTO 96 % (41-73); Platelet Count 229 K/mm3 (150-400); RDW Coefficient Variation 15.5 % (11.7-14.2); RDW Standard Deviation 49.1 fL (35.1-46.3); Red Blood Cell Count 3.45 M/mm3 (3.80-5.20); White Blood Cell Count 9.38 K/mm3 (4.00-11.30)
[2025-01-03] MEDS ORDERED: THERA-D2000 UNIT PO (04:20)
[2025-01-03] MEDS ORDERED: CALCIUM 600 +1 EA11 PO (04:26)
[2025-01-03 04:29] LABS: Albumin, Blood 3.3 g/dL (3.4-5.0); Albumin/Globulin Ratio 0.9 (0.8-1.8); Bilirubin, Total 0.5 mg/dL (0.1-1.0); Bun/Creatinine Ratio 36.1 (12.0-20.0); Calcium, Blood 8.9 mg/dL (8.5-10.1); Creatinine, Blood 0.91 mg/dL (0.40-1.00); Globulin, Blood 3.8 g/dL (2.2-4.0); Potassium, Blood 3.7 mmol/L (3.5-5.5); Total Protein, Blood 7.1 g/dL (6.4-8.2)
[2025-01-03] MEDS ORDERED: Acetaminophen650 M1 PO (04:30)
[2025-01-03] MEDS ORDERED: LORA10ER PO (04:39)
[2025-01-03 05:15] LABS: BASOPHILS PERCENT MAN 0 % (0-2); EOSINOPHILS PERCENT MAN 0 % (0-6); LYMPHOCYTES ABSOLUTE MAN 0.18 K/mm3 (0.84-5.20); LYMPHOCYTES PERCENT MAN 2 % (21-46); MONOCYTES PERCENT MAN 0 % (4-13); MYELOCYTE ABSOLUTE MAN 0.09 K/mm3 (0.00-0.00); MYELOCYTE PERCENT MAN 1 % (0-0); NEUTROPHILS ABSOLUTE MAN 9.09 K/mm3 (1.96-9.15); SEG NEUTROPHILS PERCENT MAN 97 % (41-73); TOTAL CELLS COUNTED 100
[2025-01-03] MEDS ORDERED: Acetaminophen 325 MG TABLET PO PRN (05:40)
[2025-01-03] MEDS ORDERED: Fluticasone 0.05% Nasal Spray PRN (05:40)
[2025-01-03] MEDS ORDERED: GuaiFENesin 600 MG TabCR PO PRN (05:40)
[2025-01-03] MEDS ORDERED: Loperamide HCl 2 MG Cap PO PRN (05:45)
[2025-01-03] MEDS ORDERED: LORazepam 0.5 MG Tab PO PRN (05:45)
--- NOTE | 2025-01-03 06:06 | NUR ---
SHIFT SUMMARY NO ACUTE CHANGES THIS SHIFT, AFEBRILE, SR 80-90s, BP STABLE, REMAINS SOB WITH EXERTION AND CONVERSATIONS, RESP 30s, O2 AT 7 LPM HFNC WITH SPO2 >90%, WAS PLACED ON CPAP AT 7 LPM AT 0520 AND WAS ABLE TOLERATE UNITL 0600 AND THEN PLACED BACK ON HFNC, DENIES CP OR DISCOMFORT AT THIS TIME, PUREWICK IN PLACE WITH PT VOIDING CLEAR YELLOW URINE, SIDE RAILS UP X2 CALL LIGHT IN REACH
--- NOTE | 2025-01-03 06:14 | NUR ---
UPDATE DR SALAS AT BEDSIDE TO SEE PT, UPDATED ON PT O2 NEEDS AND URINE OUTPUT, NEW ORDER RECEIVED FOR CARDIAC DIET
[2025-01-03] MEDS ORDERED: Misc. Injectable IV SCH (07:15)
[2025-01-03 08:06] VITALS: BP 101/55
[2025-01-03] MEDS ORDERED: Pantoprazole Sodium 20 MG Tab PO SCH (09:00)
[2025-01-03] MEDS ORDERED: Sildenafil Citrate 20 MG Tab PO SCH (09:00)
[2025-01-03] MEDS ORDERED: Potassium Chloride 10 Meq Tablet SA PO SCH (09:00)
[2025-01-03] MEDS ORDERED: Misc. Tablet PO SCH (09:00)
[2025-01-03] MEDS ORDERED: Enoxaparin 40 MG/0.4 ML SYR SC SCH (09:00)
[2025-01-03 11:17] VITALS: BP 100/53
[2025-01-03 15:18] VITALS: BP 100/60
--- NOTE | 2025-01-03 17:34 | NUR ---
SHIFT SUMMARY PT A&Ox4, CALLS AND COMMUNICATES NEEDS APPROPRIATELY. BP STABLE, SINUS 80's, DENIES CP/PRESSURE. SpO2> 92% 6L VIA NC, REPORTS SOB HAS MUCH IMPROVED SINCE START OF SHIFT. NO C/O PAIN. 1 ASSIST TO CHAIR. IN/CONTINENT OF URINE, PUREWICK IN PLACE. NO OTHER EVENTS, WILL REPORT TO ONCOMING RN.
--- NOTE | 2025-01-03 17:36 | NUR ---
PALLIATIVE CARE NOTE: MET WITH PT IN HER ROOM. PT IS ABLE TO PARTICIPATE IN MEANINGFUL DISCUSSION. DISCUSSED ADVANCED DIRECTIVE AND POA DOCUMENTS FOUND IN PT CHART. PT CONFIRMED DAUGHTER CELENA IS POA AND ADVANCE DIRECTIVE IS STILL APPROPRIATE. PT STATES SHE HAS POLST ON HER REFRIGERATOR AT [facility] WHICH HAS CPR/FULL MEASURES CHECKED. DISCUSSED RISKS VS BENEFITS OF CPR. PT CONTINUES TO WANT FULL MEASURES. PT REPORTS SHE GETS QUALITY OF LIFE FROM GOING TO HER [employer]AMES EVERY THURSDAY AND EVERY Thursday. SHE STATES SHE WILL NOT TAKE HER TORSEMIDE IN THE MORNINGS OF HER GAME DAYS SO SHE DOESN'T HAVE AN ACCIDENT AND WILL FORGET TO TAKE IT WHEN SHE GETS HOME. SHE ADMITS THIS IS LIKELY WHY SHE ENDED UP IN THE HOSPITAL. PT COUNCILED ON IMPORTANCE OF MEDICATION ADHERENCE AND SUGGESTED USE OF ATTENDS ON THOSE DAYS SHE GOES TO HER GAMES. PT STATES SHE HAS ATTEMPTED TO GET IN TOUCH WITH HER SOLE POLISHER UP IN [place] 3 TIMES THIS PAST MONTH TO REPORT HER CONCERNS OF WORSENING SHORTNESS OF BREATH OVER THE PAST MONTH BUT THEY DID NOT RETURN HER CALLS. PT DENIES PAIN, NAUSEA, DIFFICULTY SLEEPING. PT REPORTS SOB AND INDEED SHOWS SIGNS OF SOB WITH TALKING AFTER 3-4 SENTENCES AND NEEDS TO TAKE A BREAK FROM TALKING TO CATCH HER BREATH. SHE IS ABLE TO AFTER ABOUT 30 SECONDS OF REST. PT STATES SOB HAS BEEN IMPROVING SINCE ADMISSION. PT HAS GOALS TO CONTINUE TREATMENT. SHE STATES "I'M NOT READY TO GIVE UP". PT IS AWARE OF HOSPICE SERVICES WHEN SHE IS READY. DISCUSSED GOALS OF HOSPICE AND ABILITY TO TAKE HER MEDICATIONS AND FOLLOW-UP WITH PCP IF NEEDED BUT GOAL WOULD NOT TO COME BACK TO THE HOSPITAL. PT V/U. ENDED VISIT.
[2025-01-03 20:32] VITALS: BP 113/65
[2025-01-03] MEDS ORDERED: Sertraline HCl 50 MG Tab PO SCH (21:00)
[2025-01-03] MEDS ORDERED: Pramipexole DI-HCL 1 Mg Tab PO SCH (21:00)
[2025-01-03 23:29] VITALS: BP 90/55
[2025-01-04 04:00] VITALS: BP 91/56
[2025-01-04 04:16] LABS: BASOPHILS ABSOLUTE AUTO 0.02 K/mm3 (0.00-0.23); BASOPHILS PERCENT AUTO 0 % (0-2); EOSINOPHILS ABSOLUTE AUTO 0.04 K/mm3 (0.00-0.68); EOSINOPHILS PERCENT AUTO 0 % (0-6); Hematocrit 27.6 % (33.0-51.0); Hemoglobin 8.8 g/dL (11.5-16.0); IMMATURE GRAN ABSOLUTE AUTO 0.05 K/mm3 (0.00-0.10); IMMATURE GRAN PERCENT AUTO 0 % (0-1); LYMPHOCYTES ABSOLUTE AUTO 0.87 K/mm3 (0.84-5.20); LYMPHOCYTES PERCENT AUTO 8 % (21-46); MONOCYTES ABSOLUTE AUTO 0.71 K/mm3 (0.16-1.47); MONOCYTES PERCENT AUTO 6 % (4-13); Mean Corpuscular HGB 27.6 pg (26.0-34.0); Mean Corpuscular HGB Conc 31.9 g/dL (31.5-36.5); Mean Corpuscular Volume 87 fL (80-100); Mean Platelet Volume 10.3 fL (9.1-12.4); NEUTROPHILS ABSOLUTE AUTO 9.68 K/mm3 (1.96-9.15); NEUTROPHILS PERCENT AUTO 85 % (41-73); Platelet Count 261 K/mm3 (150-400); RDW Coefficient Variation 15.7 % (11.7-14.2); RDW Standard Deviation 50.2 fL (35.1-46.3); Red Blood Cell Count 3.19 M/mm3 (3.80-5.20); White Blood Cell Count 11.37 K/mm3 (4.00-11.30)
[2025-01-04 04:39] LABS: Bun/Creatinine Ratio 41.3 (12.0-20.0); Calcium, Blood 8.6 mg/dL (8.5-10.1); Creatinine, Blood 0.75 mg/dL (0.40-1.00); Potassium, Blood 3.8 mmol/L (3.5-5.5)
--- NOTE | 2025-01-04 04:53 | NUR ---
SHIFT SUMMARY. PATIENT IS PLEASANT AND COOPERATIVE WITH CARE. PATIENT IS AT HER BASELINE OXYGEN ON 6LPM SATTING >92% AND DENIES SOB. PATIENT IS PLEASANT AND COOPERATIVE WITH CARE. PATIENT DID REPORT THIS EVENING THAT SHE WAS ANXIOUS AND HAVING TROUBLE SLEEP; ORDER IN PLACE FOR ATIVAN PRN FOR ANXIETY-SPOKE WITH PATIENT IN REGARDS TO THE ORDERED MEDICATIONS APPROPRIATE FOR ANXIETY, PATIENT OPTED FOR ANTIANXIETY MEDICATION. PATIENT REPORTS IMPROVED ANXIOUSNESS AND ABILITY TO REST-REPORTED THIS MORNING AT AM VITALS THAT SHE "SLEPT REALLY WELL LAST NIGHT". PATIENTS DAUGHTER IN AT BEGINNING OF SHIFT AND CHANGED PATIENTS REMODULIN PUMP-PATIENTS PUMP IS CHANGED EVERY 71 HOURS PER DAUGHTER AND DEVICE NOTES WHEN NEXT CHANGE IS DUE. BED IS LOCKED IN THE LOWEST POSITION IH CALL LIGHT IN REACH. CARE IS ONGOING.
[2025-01-04 08:00] VITALS: BP 106/62
[2025-01-04 13:34] VITALS: BP 101/51
[2025-01-04 16:36] VITALS: BP 99/53
--- NOTE | 2025-01-04 18:08 | NUR ---
SHIFT SUMMARY: PT A&OX4 FOLLOWS COMMANDS AND MAKES NEEDS KNOWN TO STAFF. PT HAS CALLED APPROPRIATELY ALL DAY. PT REPORTS SOB WITH ANY EXERTION BUT DENIES ANY CP, PRESSURE OR TIGHTNESS. PT WAS ABLE TO GET UP TO THE CHAIR AT BEDSIDE WITH SBA. PROVIDER IS WAITING FOR CALL BACK FROM [employer] PRESS OPERATOR TO DETERMINE IF PT IS OKAY TO DC TO HOME DUE TO WORSENING ECHO RESULTS. NO OTHER SIGNIFICANT EVENTS HAPPENED DURING THIS SHIFT. WILL CONTINUE TO CARE FOR PT TILL END OF SHIFT.
[2025-01-04 20:27] VITALS: BP 105/55
--- NOTE | 2025-01-04 23:15 | NUR ---
PATIENT CALLED FOR NURSE, PATIENT VERY ANXIOUS AND UPSET. PATIENT HAVING TROUBLE GETTING COMFORTABLE, OVERWHELMED WITH CORDS AND LINES, ANXIOUS ABOUT NOT BEING ABLE TO GO HOME TODAY. PATIENT REQUESTED FOR ATIVAN. PATIENT REPORTED EARLIER IN THE SHIFT THAT AT HOME SHE WILL GET UP TO HER RECLINER IF SHE CANT GET COMFORTABLE AT HOME. RECLINER PROVIDED TO PATIENT. THERAPUETIC COMMUNICATION PROVIDED TO PATIENT WITH IMPROVEMENT TO ANXIETY,
[2025-01-04 23:38] VITALS: BP 202/49
[2025-01-05 04:16] LABS: BASOPHILS ABSOLUTE AUTO 0.03 K/mm3 (0.00-0.23); BASOPHILS PERCENT AUTO 0 % (0-2); EOSINOPHILS ABSOLUTE AUTO 0.25 K/mm3 (0.00-0.68); EOSINOPHILS PERCENT AUTO 3 % (0-6); Hematocrit 31.1 % (33.0-51.0); Hemoglobin 9.7 g/dL (11.5-16.0); IMMATURE GRAN ABSOLUTE AUTO 0.04 K/mm3 (0.00-0.10); IMMATURE GRAN PERCENT AUTO 0 % (0-1); LYMPHOCYTES ABSOLUTE AUTO 1.04 K/mm3 (0.84-5.20); LYMPHOCYTES PERCENT AUTO 11 % (21-46); MONOCYTES ABSOLUTE AUTO 0.62 K/mm3 (0.16-1.47); MONOCYTES PERCENT AUTO 6 % (4-13); Mean Corpuscular HGB 27.5 pg (26.0-34.0); Mean Corpuscular HGB Conc 31.2 g/dL (31.5-36.5); Mean Corpuscular Volume 88 fL (80-100); Mean Platelet Volume 10.2 fL (9.1-12.4); NEUTROPHILS ABSOLUTE AUTO 7.77 K/mm3 (1.96-9.15); NEUTROPHILS PERCENT AUTO 80 % (41-73); Platelet Count 283 K/mm3 (150-400); RDW Coefficient Variation 15.9 % (11.7-14.2); RDW Standard Deviation 50.8 fL (35.1-46.3); Red Blood Cell Count 3.53 M/mm3 (3.80-5.20); White Blood Cell Count 9.75 K/mm3 (4.00-11.30)
[2025-01-05 04:38] LABS: Calcium, Blood 8.6 mg/dL (8.5-10.1); Creatinine, Blood 0.79 mg/dL (0.40-1.00); Potassium, Blood 3.9 mmol/L (3.5-5.5)
[2025-01-05 04:48] VITALS: BP 100/55
[2025-01-05 07:24] VITALS: BP 96/49
--- NOTE | 2025-01-05 07:24 | NUR ---
shift summary. no acute changes noted this shift. patient had bout of anxiety this evening r/t being uncomfortable and discouraged that she didnt get to go home during the day and was hopful that she would. patient requested for anti-anxiety medication-med given per order. patient rested well t/o remainder of shift in recliner. call light is in reach. report given to dayshift nurse.
--- NOTE | 2025-01-05 09:32 | NUR ---
Pt is awake, alert, but states a little tired due to anxiety and interrupted sleep last night. She bemoans the fact that her wrapper caser Dr Castillo has not called back to talk to the hospitalist.
--- NOTE | 2025-01-05 11:16 | NUR ---
Spiritual Care Visit. Pt. isawake in a recliner when she welcomes my visit. Pt. is pleasant and verbalizes that she anticipates to be discharged back to [facility] sometime soon. Facilitated a life review and consider matters of vick and belief. Pt. displays evidence of trust, awareness, and engagement. Prayed with the Pt. Pt. verbalized gratitude for the spiritual care visit.
[2025-01-05 12:39] VITALS: BP 111/46
--- NOTE | 2025-01-05 13:21 | NUR ---
Discharge instructions were reviewed with the patient, including her medication changes, follow up appointments and diagnosis of cor pulmonale. Written instructions and education given to pt to take home. Vital signs stable, and IV and telemetry removed. Pt assisted with dressing and taken down by PCT to private vehicle driven by pt's friend. Oxygen in use during transfer; she has O2 in the vehicle for the ride home.
== END 2025-01-05 12:45 | disposition home or self-care (01) | DRG 314 ==
LOC: ER 21:44 → ERHOLD 21:45 → PCU 21:45
PROVIDERS: Emergency Medicine; Family Medicine; ADMIT Internal Medicine
PROC: 5A09357 Assistance with Respiratory Ventilation, Less than 24 Consecutive Hours, Continuous Positive Airway Pressure (ICD-10-PCS; principal; 2025-01-03)
DX: I27.20 Pulmonary hypertension, unspecified (principal); J96.21 Acute and chronic respiratory failure with hypoxia; J84.9 Interstitial pulmonary disease, unspecified; K21.9 Gastro-esophageal reflux disease without esophagitis; J44.9 Chronic obstructive pulmonary disease, unspecified; I73.00 Raynaud's syndrome without gangrene; I50.9 Heart failure, unspecified; Z96.653 Presence of artificial knee joint, bilateral; Z96.662 Presence of left artificial ankle joint; D72.829 Elevated white blood cell count, unspecified; M34.9 Systemic sclerosis, unspecified; I27.81 Cor pulmonale (chronic); D64.9 Anemia, unspecified; Z79.899 Other long term (current) drug therapy; Z87.891 Personal history of nicotine dependence; Z88.8 Allergy status to other drugs, medicaments and biological substances; Q82.8 Other specified congenital malformations of skin
CPT/HCPCS: 36415; 71045; 80048; 80053; 83880; 84484; 85025; 93005; 93010; 93306; 93971; 94644; 94660; 94664; 94762; 96374; 96375; 99285-25; A9270; G0378; J1650; J1940; J2470; J2919